=== PATIENT | female | born 1990 | race African-American/Black ===

== ENCOUNTER 2021-01-02 06:34 | Day surgery (SDC) | payer SELFPAY ==
[2020-12-30 10:19] VITALS: BMI 27.0
[2021-01-02] MEDS ORDERED: EPINEPHrine/PF 1 MG/1 ML (1:1,000) AMPULE ONE (07:13)
[2021-01-02] MEDS ORDERED: BACITRACIN 15 GM TUBE TOPICAL OINTMENT ONE (07:14)
[2021-01-02] MEDS ORDERED: BUPIVACAINE HCL/PF 0.25% (2.5MG/ML) 10 ML VIAL ONE (07:14)
[2021-01-02] MEDS ORDERED: BUPIVACAINE LIPOSOME/PF (EXPAREL) 266 MG/20 ML VIAL ONE (07:18)
[2021-01-02] MEDS ORDERED: KETOROLAC TROMETHAMINE 30 MG/1 ML VIAL ONE (07:55)
[2021-01-02] MEDS ORDERED: PROPOFOL 20 ML ONE ×6 (07:55→12:49)
[2021-01-02] MEDS ORDERED: fentaNYL CITRATE 250 MCG/5 ML VIAL ONE (07:55)
[2021-01-02] MEDS ORDERED: ceFAZolin SODIUM 1 GM VIAL ONE ×2 (07:55→15:14)
[2021-01-02] MEDS ORDERED: DEXAMETHASONE SOD PHOSPHATE 4 MG/1 ML VIAL ONE (07:55)
[2021-01-02] MEDS ORDERED: LIDOCAINE HCL/PF 2% SDV 5ML VIAL ONE (07:55)
[2021-01-02] MEDS ORDERED: ONDANSETRON 4 MG/2 ML VIAL ONE ×2 (07:55→14:19)
[2021-01-02] MEDS ORDERED: LIDOCAINE HCL 2% JELLY (5 ML/TUBE) ONE (07:55)
[2021-01-02] MEDS ORDERED: SUCCINYLCHOLINE CHLORIDE 200 MG/10 ML SYRINGE ONE (07:56)
[2021-01-02] MEDS ORDERED: MIDAZOLAM HCL 2 MG/2 ML SINGLE DOSE VIAL ONE (07:56)
[2021-01-02] MEDS ORDERED: ROCURONIUM BROMIDE 50 MG/5 ML SYRINGE ONE ×2 (07:56→09:25)
[2021-01-02] MEDS ORDERED: SCOPOLAMINE HYDROBROMIDE 1 PATCH PATCH.TD72 ONE (08:00)
[2021-01-02] MEDS ORDERED: HEPARIN NA (PORCINE) 5,000 UNITS/ML 1ML VIAL ONE (08:19)
[2021-01-02] MEDS ORDERED: HEPARIN NA (PORCINE) 5,000 UNITS/ML 1ML VIAL SQ ONE (08:21)
[2021-01-02] MEDS ORDERED: BUPIVACAINE LIPOSOME/PF (EXPAREL) 266 MG/20 ML VIAL NR ONE (09:56)
[2021-01-02] MEDS ORDERED: BUPIVACAINE HCL/PF 0.25% (2.5MG/ML) 10 ML VIAL IJ ONE (09:56)
[2021-01-02] MEDS ORDERED: DESFLURANE GAS 240 ML BOTTLE IH ONE (11:47)
[2021-01-02] MEDS ORDERED: NEOSTIGMINE METHYLSULFATE 0.5 MG/1 ML - 10 ML MDV ONE (12:17)
[2021-01-02] MEDS ORDERED: GLYCOPYRROLATE 0.2 MG/1 ML VIAL ONE (12:21)
[2021-01-02] MEDS ORDERED: NITROGLYCERIN 2% OINTMENT - 1GM PACKET TD ONE ×2 (13:00→13:03)
[2021-01-02] MEDS ORDERED: ONDANSETRON 4 MG/2 ML VIAL IVPUSH PRN (13:19)
[2021-01-02] MEDS ORDERED: oxyCODONE HCL 5 MG TABLET PO PRN ×2 (13:19)
[2021-01-02] MEDS ORDERED: PROMETHAZINE HCL 25 MG/1 ML VIAL IVPUSH PRN (13:19)
[2021-01-02] MEDS ORDERED: ONDANSETRON 4 MG/2 ML VIAL IVPB PRN (13:53)
[2021-01-02] MEDS ORDERED: MORPHINE SULFATE 2 MG/ML VIAL IVPUSH PRN (13:53)
[2021-01-02] MEDS ORDERED: LACTATED RINGERS SOLUTION 1,000 ML IV SCH (14:00)
[2021-01-02] MEDS: CEFAZOLIN 1 GM/D5W 1 GM/50 ML BAG IVPB SCH ×2 (17:04→20:12)
[2021-01-02] MEDS: ACETAMINOPHEN 1000 MG/100 ML VIAL (NON FORMULARY) IVPB PRN ×2 (18:12→23:16)
[2021-01-02] MEDS: oxyCODONE HCL 5 MG TABLET PO PRN (20:53)
[2021-01-03] MEDS: CEFAZOLIN 1 GM/D5W 1 GM/50 ML BAG IVPB SCH ×2 (04:00→08:15)
[2021-01-03] MEDS: ACETAMINOPHEN 1000 MG/100 ML VIAL (NON FORMULARY) IVPB PRN (05:16)
[2021-01-03 06:55] VITALS: BP 110/59; PULSE 88; TEMP 99.6
[2021-01-03] MEDS ORDERED: DOCUSATE SODIUM 100 MG CAPSULE (FP) PO ONE (07:30)
[2021-01-03] MEDS: oxyCODONE HCL 5 MG TABLET PO PRN (07:51)
[2021-01-03] MEDS ORDERED: HEPARIN NA (PORCINE) 5,000 UNITS/ML 1ML VIAL SQ SCH (08:00)
== END 2021-01-03 09:51 | disposition home or self-care (01) ==
LOC: FASU 06:34 → FM/S 13:53 → FASU 01-03 09:51
PROVIDERS: ATTEND Plastic Surgery
PROC: 0J080ZZ Alteration of Abdomen Subcutaneous Tissue and Fascia, Open Approach (ICD-10-PCS; principal; 2021-01-02 08:35)
PROC: 0J083ZZ Alteration of Abdomen Subcutaneous Tissue and Fascia, Percutaneous Approach (ICD-10-PCS; 2021-01-02 08:35)
DX: M95.8 Other specified acquired deformities of musculoskeletal system (principal); M60.28 Foreign body granuloma of soft tissue, not elsewhere classified, other site
CPT/HCPCS: 81025; 88300-TC; 94760; J0131; J1644